=== PATIENT | female | born 1965 | race Caucasian/White ===

== ENCOUNTER 2017-03-01 09:12 | Outpatient (CLI) ==
[2015-10-29 07:56] VITALS: BMI 22.4
--- NOTE | 2017-03-01 09:32 | DI ---
EXAM: Radiographs, lumbar spine HISTORY: Back pain. COMPARISON: None available. TECHNIQUE: Five views. FINDINGS: Left convex curvature centered near L4-5 noted. Alignment is normal. There is severe lo ss of disc height at L4-5 with endplate sclerosis and osteophyte formation. Disc heights are otherw ise mildly narrowed. Multilevel endplate osteophyte formation noted. Facet arthropathy is greater in the lower lumbar spine. No fracture or subluxation identified. Sacral arcuate lines are intact. Atherosclerotic calcifications are present. IMPRESSION: Multilevel degenerative changes, greatest at L4-5. Consider MRI if further evaluation is needed.
== END 2017-03-01 09:13 | disposition home or self-care (01) ==
LOC: RAD 09:12
PROVIDERS: ATTEND Family Medicine
DX: M54.5 Low back pain (principal)

== ENCOUNTER 2017-03-08 08:59 | Outpatient (CLI) ==
[2015-10-29 07:56] VITALS: BMI 22.4
--- NOTE | 2017-03-08 09:43 | MAMMO ---
EXAM: Bilateral digital diagnostic mammogram History: Bilateral breast cysts. Comparison: None available. Findings: MLO and CC views of bilateral breasts demonstrate scattered fibroglandular breast parench yma. There are no dominant masses, no suspicious microcalcifications and no architectural distortio ns Impression: Negative mammogram. Recommend followup routine screening mammography in 1 year. BIRADS 1
== END 2017-03-08 09:00 | disposition home or self-care (01) ==
LOC: RAD 08:59
PROVIDERS: ATTEND Family Medicine
DX: N60.01 Solitary cyst of right breast (principal)

== ENCOUNTER 2017-07-05 08:13 | Outpatient (CLI) ==
[2015-10-29 07:56] VITALS: BMI 22.4
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
== END 2017-07-05 08:14 | disposition home or self-care (01) ==
LOC: RAD 08:13
PROVIDERS: ATTEND Family Medicine
DX: M54.17 Radiculopathy, lumbosacral region (principal)

== ENCOUNTER 2017-10-03 06:49 | Emergency (ER) ==
[2017-10-03 07:00] VITALS: BP 174/103; TEMP 99.1; BMI 22.4
--- NOTE | 2017-10-03 08:13 | DI ---
EXAM: Four views of the left wrist HISTORY: Left wrist pain. COMPARISON: Left hand x-rays same day FINDINGS: There is no cortical irregularity or displaced fracture of the left wrist. There is minima l narrowing of the radiocarpal joint. There is severe degenerative change and osteophyte formation o f the first CMC joint. Scaphoid is normal. The carpal bones are normal. IMPRESSION: 1. No displaced fracture or dislocation of the left wrist. 2. Severe degenerative disease of the first CMC joint with mild radiocarpal narrowing.
--- NOTE | 2017-10-03 08:14 | DI ---
EXAM: Three views of the left hand HISTORY: Left hand pain. COMPARISON: Left wrist x-ray FINDINGS: There is no cortical irregularity or displaced fracture of the left hand. There is severe degenerative change and osteophyte formation of the first CMC joint. The remaining joint spaces are maintained. Soft tissues are unremarkable. IMPRESSION: 1. Severe degenerative disease of the first CMC joint. 2. No displaced fracture or acute abnormality.
--- NOTE | 2017-10-03 08:29 | ED.PDOC ---
General ED Provider: Dr. FLOYD MEHTA Chief Complaint: Hand Pain/Injury Stated Complaint: hand, wrist pain Time Seen by Physician: 07:00 Mode of Arrival: Walk-In Information Source: Patient Exam Limitations: No limitations Primary Care Provider: WILLIAM SANCHEZ Nursing and Triage Documentation Reviewed and Agree: Yes Musculoskeletal Complaint Exam - Hand/Wrist Complaint/Exam Location of Pain: Reports: Left, Hand, Wrist, Digit #1 Mechanism of Injury: Reports: No known trauma Onset/Duration: chronic Symptoms Are: Still present Initial Severity: Mild Current Severity: Mild Location: Reports: Discrete Character: Reports: Aching Alleviating: Reports: Rest, Elevation Aggravating: Reports: Movement Associated Signs and Symptoms: Denies: Swelling, Redness, Bruising, Fever, Weakness, Numbness, Tingling Related History: Reports: Similar episode Dominant Hand: Right Related Surgical History: Reports: None Hand/Wrist Findings: Absent: Swelling, Ecchymosis, Abnormal contour, Ligamentous instability, Tinel's Sign, Phalen's Sign Tenderness: Present: Radius, Ulna. Absent: Snuff box Compartment Syndrome Risk Factors: Present: Pain Differential Diagnoses: Closed Fracture, Sprain, Strain Review of Systems - Review Of Systems Constitutional: Reports: No symptoms Eyes: Reports: No symptoms Ears, Nose, Mouth, Throat: Reports: No symptoms Respiratory: Reports: No symptoms Cardiac: Reports: No symptoms GI: Reports: No symptoms : Reports: No symptoms Musculoskeletal: Reports: Joint pain Skin: Reports: No symptoms Neurological: Reports: No symptoms Endocrine: Reports: No symptoms Hematologic/Lymphatic: Reports: No symptoms All Other Systems: Reviewed and Negative Past Medical History - Past Medical History Previously Healthy: Yes Endocrine: Reports: None Cardiovascular: Reports: None Respiratory: Reports: None Hematological: Reports: None Gastrointestinal: Reports: None Genitourinary: Reports: None Neuro/Psych: Reports: None Musculoskeletal: Reports: None Cancer: Reports: None Last Menstrual Period: UNKNOWN - Surgical History General Surgical History: Reports: None - Family History Family History: Reports: None - Social History Smoking Status: Current every day smoker, Heavy tobacco smoker Hx Substance Use: No Alcohol Screening: Occasionally - Immunizations Tetanus Shot up to Date: (UNKNOWN) Physical Exam - Physical Exam Appearance: Well-appearing, No pain distress, Well-nourished Eyes: ELENA, EOMI, Conjunctiva clear ENT: Ears normal, Nose normal, Oropharynx normal Respiratory: Airway patent, Breath sounds clear, Breath sounds equal, Respirations nonlabored Cardiovascular: RRR, Pulses normal, No rub, No murmur GI/: Soft, Nontender, No masses, Bowel sounds normal, No Organomegaly Musculoskeletal: Normal strength, ROM intact, No edema, No calf tenderness Skin: Warm, Dry, Normal color Neurological: Sensation intact, Motor intact, Reflexes intact, Cranial nerves intact, Alert, Oriented Psychiatric: Affect appropriate, Mood appropriate Interpretation - Radiology Interpretation Radiology Interpretation By: Radiologist Radiology Results: No acute changes Critical Care Note - Critical Care Note Total Time (mins): 0 Course - Course Orders, Labs, Meds: Orders Category Date Time Status HAND, LEFT 3 VIEWS Stat RADS 10/03/17 07:24 Completed WRIST, LEFT 3 VIEWS Stat RADS 10/03/17 07:24 Completed Vital Signs: Temp Pulse Resp BP Pulse Ox 10/03/17 06:49 99.1 F 83 18 174/103 H 93 L Departure - Departure Time of Disposition: 08:28 (keep thumb spica splint on) Disposition: HOME SELF-CARE Discharge Problem: Wrist pain, left Instructions: Wrist Injury (ED), Wrist Sprain (ED) Condition: Good Pt referred to PMD for follow-up: Yes Additional Instructions: Please call your Family Physician as soon as possible to schedule a follow-up appointment.keep thumb spica splint on and need rexary in 7 days Prescriptions: Hydrocodone/Acetaminophen [[place] 5-325 Tablet] 1 each PO Q6HR PRN #12 tablet PRN Reason: PAIN Allergies/Adverse Reactions: Allergies No Known Allergies Allergy (Verified 10/03/17 07:00) Home Medications: Ambulatory Orders Cyclobenzaprine HCl [Flexeril] 5 mg PO TID PRN #15 tablet 08/24/17 Naproxen [Naprosyn] 500 mg PO Q12HR PRN #30 tablet 08/24/17 Hydrocodone/Acetaminophen [[place] 5-325 Tablet] 1 each PO Q6HR PRN #12 tablet 10/08
== END 2017-10-03 08:39 | disposition home or self-care (01) ==
LOC: ED 06:49
DX: M25.532 Pain in left wrist (principal); M79.642 Pain in left hand; F17.210 Nicotine dependence, cigarettes, uncomplicated
CPT/HCPCS: 99282

== ENCOUNTER 2019-03-07 16:00 | Emergency (ER) | payer OTHER ==
[2019-03-07 16:02] VITALS: BP 177/100; TEMP 98.6; BMI 21.3
--- NOTE | 2019-03-07 16:58 | ED.PDOC ---
General ED Provider: Dr. KATYA RAIN Chief Complaint: Fall Stated Complaint: Lt Elbow pain. Fell and landed on Lt elbow. Previous fracture. Time Seen by Physician: 16:40 Mode of Arrival: Walk-In Information Source: Patient Exam Limitations: Clinical condition Nursing and Triage Documentation Reviewed and Agree: Yes Does patient meet sepsis criteria?: No If yes, has appropriate treatment been initiated?: No System Inflammatory Response Syndrome: Not Applicable Sepsis Protocol: For patient's 13 years and over: Temp is 96.8 and below OR 101 and greater Pulse >90 BPM Resp >20/minute Acutely Altered Mental Status Are patient's symptoms suggestive of a new infection, such as: -Pneumonia -Skin, Soft Tissue -Endocarditis -UTI -Bone, Joint Infection -Implantable Device -Acute Abdominal Infection -Wound Infection -Meningitis -Blood Stream Catheter Infection -Unknown Musculoskeletal Complaint Exam - Elbow Pain Complaint/Exam Mechanism of Injury: Reports: Trauma Onset/Duration: 8 hrs Symptoms Are: Still present Onset of Pain: Reports: Immediate Initial Severity: Moderate Current Severity: Moderate Location: Reports: Discrete Character: Reports: Aching, Throbbing, Spasmodic, Stiffness Alleviating: Reports: None Aggravating: Reports: Movement, Twisting, Pulling Associated Signs and Symptoms: Reports: Swelling (unable to straighten out) Related History: Reports: Similar episode Related Surgical History: Reports: None Elbow Findings: Present: Swelling Tenderness: Present: Lateral Condyle Limited Range of Motion: Present: Extension Differential Diagnoses: Closed Fracture, Sprain Review of Systems - Review Of Systems Constitutional: Reports: No symptoms Eyes: Reports: No symptoms Ears, Nose, Mouth, Throat: Reports: No symptoms Respiratory: Reports: No symptoms Cardiac: Reports: No symptoms GI: Reports: No symptoms : Reports: No symptoms Musculoskeletal: Reports: No symptoms, Joint pain Skin: Reports: No symptoms Neurological: Reports: No symptoms Endocrine: Reports: No symptoms Hematologic/Lymphatic: Reports: No symptoms All Other Systems: Reviewed and Negative Past Medical History - Past Medical History Previously Healthy: Yes Endocrine: Reports: None Cardiovascular: Reports: None Respiratory: Reports: None Hematological: Reports: None Gastrointestinal: Reports: None Genitourinary: Reports: None Neuro/Psych: Reports: None Musculoskeletal: Reports: None Cancer: Reports: None Last Menstrual Period: N/A - Surgical History General Surgical History: Reports: None - Family History Family History: Reports: None - Social History Smoking Status: Current every day smoker, Heavy tobacco smoker Hx Substance Use: No Alcohol Screening: Occasionally - Immunizations Tetanus Shot up to Date: No Physical Exam - Physical Exam Appearance: Well-appearing, Thin Ill-appearing: None Pain Distress: Moderate Eyes: ELENA, EOMI, Conjunctiva clear ENT: Ears normal, Nose normal, Oropharynx normal Neck: Supple Respiratory: Airway patent, Breath sounds clear, Breath sounds equal, Respirations nonlabored Cardiovascular: RRR, Pulses normal, No rub, No murmur GI/: Soft, Nontender, No masses, Bowel sounds normal, No Organomegaly Musculoskeletal: Normal strength, Limited ROM, Limited strength (lt forearm and elbow) Skin: Warm Neurological: Sensation intact, Motor intact, Alert, Oriented Course - Course Orders, Labs, Meds: Orders Category Date Time Status CT ELBOW LEFT WITHOUT CONTRAST Stat RADS 03/07/19 16:57 Completed ELBOW, LEFT MIN 3 VIEWS Stat RADS 03/07/19 18:08 Ordered Vital Signs: Temp Pulse Resp BP Pulse Ox 03/07/19 16:00 98.6 F 99 H 18 177/100 H 94 L Departure - Departure Time of Disposition: 18:30 Disposition: HOME SELF-CARE Discharge Problem: Closed coracoid process fracture, Fracture, ulna Discharge Problem: (Ruled Out): Ulnar abutment syndrome Instructions: Elbow Fracture (ED) Condition: Good Pt referred to PMD for follow-up: Yes (seek care at [facility] in [facility]) IP verified?: No Additional Instructions: Splint as directed Take Ibuprofen or Tylenol for pain Allergies/Adverse Reactions: Allergies No Known Allergies Allergy (Verified 03/07/19 16:02) Home Medications: Ambulatory Orders 1 [No Reported Medications] 03/07/19
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
--- NOTE | 2019-03-07 19:15 | DI ---
EXAM: Left elbow three views HISTORY: Fall COMPARISON: None. FINDINGS: There is a small posterior fat pad sign. Minimal spurring is noted laterally about the ra dial head. Mild degenerative changes noted about the elbow joint. There is a 10 mm bony body adjace nt to the coronoid process. This is better delineated on the same day CT scan. IMPRESSION: Posterior fat pad sign. Degenerate changes as described. Small bony body adjacent to the coronoid process as described. See same day CT
== END 2019-03-07 18:52 | disposition home or self-care (01) ==
LOC: ED 16:00
DX: M25.522 Pain in left elbow (principal); M25.422 Effusion, left elbow; Z72.0 Tobacco use; S52.042A Displaced fracture of coronoid process of left ulna, initial encounter for closed fracture
CPT/HCPCS: 99283

== ENCOUNTER 2019-07-01 14:19 | Outpatient (CLI) ==
--- NOTE | 2019-07-02 10:12 | US ---
EXAMINATION: Limited right breast ultrasound . HISTORY: Abscess, redness and swelling near the nipple. TECHNIQUE: Real time targeted US of the right breast region of interest. COMPARISON: None FINDINGS: Focused ultrasound of the right breast three o'clock area region of interest demonstrates hypoechoic collection with some edema. This is not well visualized secondary to patient's extreme te nderness. Findings are suggestive of collection/abscess per the given history. IMPRESSION: BIRADS: 3, probably benign. RECOMMENDATION: Recommend follow-up to resolution and screening mammogram.
== END 2019-07-01 14:20 | disposition home or self-care (01) ==
LOC: RAD 14:19
PROVIDERS: ATTEND Nurse Practitioner Family
DX: N61.1 Abscess of the breast and nipple (principal)